=== PATIENT | male | born 1990 | race Caucasian/White ===

== ENCOUNTER 2016-08-17 15:41 | Emergency (ER) | payer BC ==
[2016-08-17 16:06] VITALS: BP 129/70
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
== END 2016-08-17 17:00 | disposition home or self-care (01) ==
LOC: MW.ED 15:41
DX: S70.01XA Contusion of right hip, initial encounter (principal); S29.9XXA Unspecified injury of thorax, initial encounter; F17.210 Nicotine dependence, cigarettes, uncomplicated; X58.XXXA Exposure to other specified factors, initial encounter
CPT/HCPCS: 71100-26-RT; 71100-RT; 73502-26-RT; 73502-RT; 99282; 99283